=== PATIENT | male | born 1985 | race Asian ===

== ENCOUNTER 2019-07-31 02:42 | Emergency (ER) | payer SELFPAY ==
[~2019-07-31] VITALS: Ht 170.2 cm; Wt 68.9 kg
[2019-07-31 02:51] VITALS: Ht 170.2 cm; Wt 68.9 kg
[2019-07-31 04:00] VITALS: BP 118/50
== END 2019-07-31 04:00 | disposition home or self-care (01) ==
LOC: ED 02:42
DX: S16.1XXA Strain of muscle, fascia and tendon at neck level, initial encounter (principal); S39.012A Strain of muscle, fascia and tendon of lower back, initial encounter; W01.0XXA Fall on same level from slipping, tripping and stumbling without subsequent striking against object, initial encounter; Y93.89 Activity, other specified; Y92.89 Other specified places as the place of occurrence of the external cause; Y99.8 Other external cause status
CPT/HCPCS: J1885